=== PATIENT | female | born 1950 | race Caucasian/White ===

== ENCOUNTER 2017-08-24 05:27 | Inpatient (IN) | payer OTHER ==
[2017-08-12 10:42] LABS: BILIRUBIN,URINE NEGATIVE (NEGATIVE); BLOOD, URINE NEGATIVE (NEGATIVE); CLARITY/URINE CLEAR (CLEAR); COLOR,URINE YELLOW (YELLOW); GLUCOSE,URINE NEGATIVE (NEGATIVE); KETONES,URINE NEGATIVE (NEGATIVE); LEUKOCYTE ESTERASE ,URINE 1+ (NEGATIVE); NITRITE, URINE NEGATIVE (NEGATIVE); PH,URINE 6.5 (5.0-8.0); PROTEIN URINE NEGATIVE (NEGATIVE); UROBILINOGEN,URINE 0.2 (0.2-1.0)
[2017-08-12 10:44] LABS: BASOPHILS # (AUTO) 0.1 K/uL (0.0-0.2); BASOPHILS % (AUTO) 1.3 % (0.0-2.0); EOSINOPHILS # (AUTO) 0.1 K/uL (0.0-0.4); EOSINOPHILS % (AUTO) 1.3 % (0.0-4.0); HEMATOCRIT 45.2 % (36-48); HEMOGLOBIN 14.7 g/dL (12.0-16.0); LYMPHOCYTES % (AUTO) 28.7 % (20.5-51.5); MEAN CORPUSCULAR HEMOGLOBIN 30 pg (27-31); MEAN CORPUSCULAR HGB CONC 32 % (32-36); MEAN CORPUSCULAR VOLUME 91 fL (79.0-98.0); MONOCYTES # (AUTO) 0.4 K/uL (0.0-1.0); MONOCYTES % (AUTO) 6.3 % (1.7-9.3); NEUTROPHILS # (AUTO) 4.3 K/uL (1.8-7.7); NEUTROPHILS % (AUTO) 62.4 % (40.0-70.0); PLATELET COUNT (AUTO) 330 K/uL (130-430); RED BLOOD CELL COUNT(AUTO) 4.96 MIL/uL (4.2-6.2); RED CELL DISTRIBUTION WIDTH 12.8 % (9.0-15.0); WHITE BLOOD COUNT (AUTO) 6.9 K/uL (4.8-10.8)
[2017-08-12 10:59] LABS: RBC,URINE 0-3 /HPF (0-3)
[2017-08-12 11:00] LABS: BACTERIA,URINE FEW /HPF (None Seen); MUCUS,URINE 1+ /LPF (None Seen)
[2017-08-12 11:01] LABS: CALCIUM 9.4 mg/dL (8.4-11.0); CREATININE 0.82 mg/dL (0.55-1.30)
[2017-08-12 11:05] LABS: PROTHROMBIN TIME 9.9 SECS (9.5-12.5)
[~2017-08-24] VITALS: Ht 167.6 cm; Wt 108.0 kg
[2017-08-24] VITALS (7 sets, daily range): BP systolic 112–137
[~2017-08-24 05:27] MED LIST: HYDR-3924 PO
[2017-08-24] MEDS ORDERED: CEFAZOLIN 1 GM IVPB PREMIX 50 ML IV ONE (06:03)
[2017-08-24] MEDS ORDERED: KETOROLAC TROMETHAMINE 30 MG VIAL IVP ONE (06:47)
[2017-08-24] MEDS ORDERED: MIDAZOLAM HCL 5 MG/5 ML VIAL IVP ONE (06:47)
[2017-08-24] MEDS ORDERED: ROPIVACAINE HCL/PF 5 MG/ML 0.5% 30 ML VIAL INJ ONE (06:47)
[2017-08-24] MEDS ORDERED: ROPIVACAINE 40 MG/20 ML AMP EP ONE (06:47)
[2017-08-24] MEDS ORDERED: ONDANSETRON HCL 4 MG/2 ML VIAL IVP ONE (06:47)
[2017-08-24] MEDS ORDERED: PROPOFOL 200MG/ 20ML VIAL (DIPRIVAN) IV ONE (06:47)
[2017-08-24] MEDS ORDERED: SEVOFLURANE 15 MIN GAS INH ONE (06:47)
[2017-08-24] MEDS ORDERED: MEPERIDINE HCL/PF 100 MG/ML AMP IM ONE (06:47)
[2017-08-24] MEDS ORDERED: NS 100 ML BAG IV ONE (06:47)
[2017-08-24] MEDS ORDERED: LR 1,000 ML IV.SOLN IV ONE (06:47)
[2017-08-24] MEDS ORDERED: NS IRRIG SOLN 1000 ML IR ONE (06:47)
[2017-08-24] MEDS ORDERED: TRANEXAMIC ACID 1,000 MG/10 ML VIAL IV ONE (06:47)
[2017-08-24] MEDS ORDERED: METOPROLOL TARTRATE 5 MG/5 ML VIAL IVP ONE (06:47)
[2017-08-24] MEDS ORDERED: fentaNYL CITRATE/PF 100 MCG/2 ML AMP IVP ONE (06:47)
[2017-08-24] MEDS ORDERED: POLYMYXIN 500,000/BACIT.10,000 UNITS in NS IRR 1 L IR ONE (06:54)
[2017-08-24] MEDS ORDERED: LR 1,000 ML IV SCH (07:35)
[2017-08-24] MEDS: ROPIVACAINE 0.2% 100 ML INJ SCH ×2 (07:37→22:14)
[2017-08-24] MEDS ORDERED: DIPHENHYDRAMINE INJ 50 MG/ML VIAL IVP PRN (07:45)
[2017-08-24] MEDS ORDERED: ONDANSETRON HCL 4 MG/2 ML VIAL IVP PRN ×2 (07:45)
[2017-08-24] MEDS ORDERED: MEPERIDINE HCL/PF 25 MG/ML DISP.SYRIN IVP PRN ×2 (07:45)
[2017-08-24] MEDS ORDERED: HYDROmorphone 2 MG/ML VIAL IVP PRN ×2 (07:45)
[2017-08-24] MEDS ORDERED: HYDROmorphone 1 MG INJ. 1 MG/ML AMPUL IVP PRN ×2 (07:45)
[2017-08-24] MEDS ORDERED: NALBUPHINE HCL 10 MG/ML AMP IVP PRN (07:45)
[2017-08-24] MEDS ORDERED: D5/0.45 NS 1,000 ML IV ONE (09:28)
[2017-08-24] MEDS ORDERED: BISACODYL 10 MG/SUPPOSITORY RC PRN (09:30)
[2017-08-24] MEDS ORDERED: ACETAMINOPHEN 325 MG TABLET PO PRN (09:30)
[2017-08-24] MEDS ORDERED: ROPIVACAINE 0.2% 100 ML ONE ×2 (09:36→22:07)
[2017-08-24] MEDS: HYDROmorphone 2 MG/ML VIAL ONE ×2 (10:00→10:05)
[2017-08-24] MEDS ORDERED: HYDROmorphone 1 MG INJ. 1 MG/ML AMPUL ONE (10:23)
[2017-08-24] MEDS: CEFAZOLIN 1 GM IVPB PREMIX 50 ML IV SCH ×2 (12:18→17:21)
[2017-08-24] MEDS: RIVAROXABAN 10 MG TABLET PO SCH (12:19)
[2017-08-24] MEDS: MORPHINE SULFATE 10 MG/ML VIAL IM PRN (13:00)
[2017-08-24] MEDS: HYDROcodone/ACETAMIN 7.5-325 MG TAB PO PRN ×2 (17:23→22:13)
[2017-08-24] MEDS ORDERED: FLU VACC QS 2017-18(36MOS+)/PF 0.5 ML/SYR SYRINGE I.M. PRN (20:30)
[2017-08-25 04:45] VITALS: BP_SYST 130
[2017-08-25] MEDS: MORPHINE SULFATE 10 MG/ML VIAL IM PRN ×3 (06:02→16:27)
[2017-08-25 09:01] VITALS: BP_SYST 140
[2017-08-25] MEDS: RIVAROXABAN 10 MG TABLET PO SCH (09:02)
[2017-08-25] MEDS: HYDROcodone/ACETAMIN 7.5-325 MG TAB PO PRN ×2 (14:42→22:22)
[2017-08-25 14:51] VITALS: BP_SYST 151
[2017-08-25] MEDS: ROPIVACAINE 0.2% 100 ML INJ SCH ×2 (16:32→21:07)
[2017-08-25 20:00] VITALS: BP_SYST 147
[2017-08-26] VITALS: BP_SYST 115
[2017-08-26 03:25] VITALS: BP_SYST 116
[2017-08-26] MEDS: ROPIVACAINE 0.2% 100 ML INJ SCH ×2 (04:47→18:53)
[2017-08-26] MEDS: HYDROcodone/ACETAMIN 7.5-325 MG TAB PO PRN ×4 (04:57→20:03)
[2017-08-26] MEDS: RIVAROXABAN 10 MG TABLET PO SCH (08:46)
[2017-08-26 08:50] VITALS: BP_SYST 153
[2017-08-26 10:59] LABS: BASOPHILS # (AUTO) 0.3 K/uL (0.0-0.2); BASOPHILS % (AUTO) 2.5 % (0.0-2.0); EOSINOPHILS % (AUTO) 0.1 % (0.0-4.0); HEMATOCRIT 34.5 % (36-48); HEMOGLOBIN 11.5 g/dL (12.0-16.0); LYMPHOCYTES # (AUTO) 1.8 K/uL (1.0-5.5); LYMPHOCYTES % (AUTO) 13.8 % (20.5-51.5); MEAN CORPUSCULAR HEMOGLOBIN 31 pg (27-31); MEAN CORPUSCULAR HGB CONC 33 % (32-36); MEAN CORPUSCULAR VOLUME 92 fL (79.0-98.0); MONOCYTES # (AUTO) 1.1 K/uL (0.0-1.0); NEUTROPHILS % (AUTO) 75.6 % (40.0-70.0); PLATELET COUNT (AUTO) 219 K/uL (130-430); RED BLOOD CELL COUNT(AUTO) 3.77 MIL/uL (4.2-6.2); RED CELL DISTRIBUTION WIDTH 12.3 % (9.0-15.0); WHITE BLOOD COUNT (AUTO) 13.2 K/uL (4.8-10.8)
[2017-08-26 12:25] VITALS: BP_SYST 138
[2017-08-26 16:16] VITALS: BP_SYST 139
[2017-08-26] MEDS ORDERED: cefTRIAXone 1 GM IVPB PREMIX 50 ML IV ONE (19:00)
[2017-08-26] MEDS ORDERED: ONDANSETRON HCL 4 MG/2 ML VIAL IVP ONE (19:30)
[2017-08-26 20:00] VITALS: BP_SYST 147
[2017-08-27] VITALS: BP_SYST 117
[2017-08-27] MEDS: HYDROcodone/ACETAMIN 7.5-325 MG TAB PO PRN ×2 (03:11→11:58)
[2017-08-27 03:21] VITALS: BP_SYST 115
[2017-08-27 07:19] LABS: BASOPHILS % (AUTO) 0.3 % (0.0-2.0); EOSINOPHILS % (AUTO) 0.4 % (0.0-4.0); HEMATOCRIT 31.3 % (36-48); HEMOGLOBIN 10.5 g/dL (12.0-16.0); LYMPHOCYTES # (AUTO) 1.7 K/uL (1.0-5.5); LYMPHOCYTES % (AUTO) 15.3 % (20.5-51.5); MEAN CORPUSCULAR HEMOGLOBIN 31 pg (27-31); MEAN CORPUSCULAR HGB CONC 34 % (32-36); MEAN CORPUSCULAR VOLUME 92 fL (79.0-98.0); MONOCYTES # (AUTO) 0.8 K/uL (0.0-1.0); MONOCYTES % (AUTO) 7.6 % (1.7-9.3); NEUTROPHILS # (AUTO) 8.5 K/uL (1.8-7.7); NEUTROPHILS % (AUTO) 76.4 % (40.0-70.0); PLATELET COUNT (AUTO) 213 K/uL (130-430); RED BLOOD CELL COUNT(AUTO) 3.39 MIL/uL (4.2-6.2); RED CELL DISTRIBUTION WIDTH 12.3 % (9.0-15.0)
[2017-08-27 08:00] VITALS: BP_SYST 150
[2017-08-27] MEDS: RIVAROXABAN 10 MG TABLET PO SCH (08:47)
[2017-08-27] MEDS: MORPHINE SULFATE 10 MG/ML VIAL IM PRN (08:47)
[2017-08-27 11:46] VITALS: BP_SYST 131
[2017-08-27 12:54] VITALS: BP_SYST 131
[2017-08-27] MEDS ORDERED: NITROFURANTOIN MONOHYD/M-CRYST 100 MG CAPSULE PO ONE (13:45)
[2017-08-27] MEDS ORDERED: NITR-85 PO (13:58)
[2017-08-27] MEDS ORDERED: CHOLECALCIFEROL (VITAMIN D3) 2,000 UNIT TABLET PO ONE (14:00)
[2017-08-27 14:43] LABS: BILIRUBIN,URINE NEGATIVE (NEGATIVE); CLARITY/URINE SL HAZY (CLEAR); COLOR,URINE YELLOW (YELLOW); GLUCOSE,URINE NEGATIVE (NEGATIVE); KETONES,URINE TRACE (NEGATIVE); LEUKOCYTE ESTERASE ,URINE 1+ (NEGATIVE); NITRITE, URINE NEGATIVE (NEGATIVE); PROTEIN URINE NEGATIVE (NEGATIVE); UROBILINOGEN,URINE 0.2 (0.2-1.0)
[2017-08-27 14:46] LABS: BLOOD, URINE TRACE (NEGATIVE)
[2017-08-27 14:59] LABS: BACTERIA,URINE MODERATE /HPF (None Seen)
[2017-08-27 15:00] LABS: MUCUS,URINE 1+ /LPF (None Seen)
[2017-08-27] MEDS ORDERED: NITROFURANTOIN MONOHYD/M-CRYST 100 MG CAPSULE PO SCH (21:00)
[2017-08-28] MEDS ORDERED: CHOLECALCIFEROL (VITAMIN D3) 2,000 UNIT TABLET PO SCH (09:00)
== END 2017-08-27 14:30 | DRG 470 ==
LOC: SMU 05:27
PROVIDERS: ADMIT Orthopaedic Surgery; ATTEND Orthopaedic Surgery
PROC: 0SRC0J9 Replacement of Right Knee Joint with Synthetic Substitute, Cemented, Open Approach (ICD-10-PCS; principal; 2017-08-24 07:30)
DX: M17.11 Unilateral primary osteoarthritis, right knee (principal); E66.9 Obesity, unspecified; N39.0 Urinary tract infection, site not specified; F17.200 Nicotine dependence, unspecified, uncomplicated; G89.29 Other chronic pain; Z68.38 Body mass index [BMI] 38.0-38.9, adult
CPT/HCPCS: 36415; 71010; 71020-TC; 80048; 81000-TC; 83605; 85025; 85610-TC; 85730-TC; 87040-TC; 87081; 87086; 88305; 88311; 93005; 94010; 97039; 97110-GP; 97116-GP; 97530-GP; C1713; C1776; J0690; J0696; J1170; J1885; J2175; J2250; J2270; J2405; J2704; J2795; J3010; J3490; J7120; Q2037